=== PATIENT | male | born 1970 | race Caucasian/White ===

== ENCOUNTER 2018-05-11 07:23 | Day surgery (SDC) | payer OTHER, MEDICAID ==
[~2018-05-11] VITALS: Ht 172.7 cm; Wt 94.8 kg
[2018-05-11] MEDS ORDERED: HYALURONATE SODIUM 14 MG/ML 0.85ML SYRINGE IO ONE (08:59)
[2018-05-11] MEDS ORDERED: BALANCED SALT IRRIG SOLN COMB1 500ML OP ONE (09:00)
[2018-05-11 09:01] VITALS: BP 150/82
[2018-05-11 09:08] LABS: EOSINOPHILS % 4.8 % (0.0-5.0); HEMATOCRIT. 41.4 % (42.0-52.0); HEMOGLOBIN. 14.2 g/dL (14.0-18.0); LYMPHOCYTES % 48.8 % (20.0-50.0); MEAN CORPUSCULAR HEMOGLOBIN 29.7 pg (28.0-32.0); MEAN CORPUSCULAR VOLUME 86.7 fL (80.0-94.0); MEAN PLATELET VOLUME 7.9 fl (7.4-10.4); MONOCYTES % 11.5 % (2.0-8.0); NEUTROPHILS % 33.9 % (40.0-76.0); PLATELET 283 x1000/uL (130-400); RED BLOOD CELL COUNT 4.78 mill/uL (4.7-6.1); RED CELL DISTRIBUTION WIDTH 13.4 % (11.6-14.6)
[2018-05-11 09:15] LABS: CHLORIDE 107 mEq/L (98-107)
[2018-05-11 09:16] LABS: PARTIAL THROMBOPLASTIN TIME 23.4 sec (23.4-31.0); PROTHROMBIN TIME 10.1 sec (9.1-11.1)
[2018-05-11] MEDS ORDERED: FENTANYL CITRATE/PF 50MCG/ML 2ML VIAL ONE (10:04)
[2018-05-11] MEDS ORDERED: MIDAZOLAM HCL 2 MG/2 ML VIAL ONE (10:04)
[2018-05-11] MEDS ORDERED: LABETALOL 5MG/ML SYR 20 MG/4 ML SYRINGE IV PRN (10:15)
[2018-05-11] MEDS ORDERED: MEPERIDINE HCL/PF 25MG/ML CPJ IV PRN (10:15)
[2018-05-11] MEDS ORDERED: HYDROMORPHONE HCL/PF 2MG/ML CPJ IV PRN (10:15)
[2018-05-11] MEDS ORDERED: ONDANSETRON HCL 4MG/2ML INJ IV PRN (10:15)
[2018-05-11] MEDS ORDERED: PROPOFOL 200MG/20ML VIAL IV ONE (10:18)
[2018-05-11] MEDS ORDERED: CEFAZOLIN SODIUM 1000MG/VIAL ONE (10:35)
[2018-05-11] MEDS ORDERED: SODIUM CHLORIDE 0.9% 10ML VIAL ONE (10:35)
[2018-05-11] MEDS ORDERED: LIDOCAINE HCL/PF 2% 20 MG/ML 10ML VIAL ONE (13:11)
[2018-05-11] MEDS ORDERED: NEO/POLYMYX B SULF/DEXAMETH OPHTH OINT 3.5GM ONE (13:11)
[2018-05-11] MEDS ORDERED: TETRACAINE 0.5% OPHTH DROPS 4ML ONE (13:11)
[2018-05-11] MEDS ORDERED: BALANCED SALT IRRIG SOLN 15ML ONE (13:11)
[2018-05-11] MEDS ORDERED: PREDNISOLONE ACETATE 1% OPHTH DROPS 1ML ONE (13:11)
== END 2018-05-11 10:35 | disposition home or self-care (01) ==
LOC: ER 07:23 → OR 09:55
PROVIDERS: ATTEND Ophthalmology
DX: T85.22XA Displacement of intraocular lens, initial encounter (principal); Z98.41 Cataract extraction status, right eye
CPT/HCPCS: 36415; 66825; 80048; 85025; 85610; 85730; 93005; 99285; A4216; J0690; J2250; J3010; J3490; J2704

== ENCOUNTER 2018-11-27 11:38 | Day surgery (SDC) | payer MEDICAID, OTHER ==
[~2018-11-27] VITALS: Ht 170.2 cm; Wt 88.0 kg
[2018-11-27] MEDS ORDERED: PREDNISOLONE ACETATE 1% OPHTH DROPS 1ML ONE (13:20)
[2018-11-27] MEDS ORDERED: LIDOCAINE HCL 2%/EPINEPHRINE 1:100,000 20 ML VIAL INFIL ONE (13:20)
[2018-11-27] MEDS ORDERED: BUPIVACAINE HCL/PF 0.75% (7.5MG/ML) 10ML ONE (13:20)
[2018-11-27] MEDS ORDERED: BALANCED SALT IRRIG SOLN 15ML ONE (13:20)
[2018-11-27] MEDS ORDERED: NEO/POLYMYX B SULF/DEXAMETH OPHTH OINT 3.5GM ONE (13:20)
[2018-11-27] MEDS ORDERED: LIDOCAINE HCL/PF 2% 20 MG/ML 10ML VIAL ONE (13:20)
[2018-11-27] MEDS ORDERED: TETRACAINE 0.5% OPHTH DROPS 4ML ONE (13:20)
[2018-11-27] MEDS ORDERED: CIPROFLOXACIN 0.3% OPHTH SOLN 2.5ML ONE (13:20)
[2018-11-27 14:21] LABS: CHLORIDE 108 mEq/L (98-107)
[2018-11-27 14:27] LABS: BASOPHILS % 0.8 % (0.0-2.0); EOSINOPHILS % 2.1 % (0.0-5.0); HEMATOCRIT. 43.2 % (42.0-52.0); HEMOGLOBIN. 14.8 g/dL (14.0-18.0); LYMPHOCYTES % 46.8 % (20.0-50.0); MEAN CORPUSCULAR HEMOGLOBIN 30.1 pg (28.0-32.0); MEAN CORPUSCULAR VOLUME 88.1 fL (80.0-94.0); MEAN PLATELET VOLUME 7.7 fl (7.4-10.4); MONOCYTES % 10.6 % (2.0-8.0); NEUTROPHILS % 39.7 % (40.0-76.0); PLATELET 303 x1000/uL (130-400); RED BLOOD CELL COUNT 4.91 mill/uL (4.7-6.1); RED CELL DISTRIBUTION WIDTH 13.5 % (11.6-14.6)
[2018-11-27 14:33] LABS: PROTHROMBIN TIME 10.4 sec (9.6-11.0)
[2018-11-27] MEDS ORDERED: DIPHENHYDRAMINE 50MG/ML VIAL ONE (15:13)
[2018-11-27] MEDS ORDERED: FENTANYL CITRATE/PF 50MCG/ML 2ML VIAL ONE (15:13)
[2018-11-27] MEDS ORDERED: MIDAZOLAM HCL 2 MG/2 ML VIAL ONE (15:13)
[2018-11-27] MEDS ORDERED: DEXAMETHASONE 4MG/ML 1ML VIAL ONE (15:24)
[2018-11-27] MEDS ORDERED: CEFAZOLIN SODIUM 1000MG/VIAL ONE (15:24)
[2018-11-27] MEDS ORDERED: LIDOCAINE HCL/PF 1% 10 MG/ML 5ML VIAL ONE (15:24)
[2018-11-27] MEDS ORDERED: PROPOFOL 200MG/20ML VIAL IV ONE (15:24)
[2018-11-27] MEDS ORDERED: SODIUM CHLORIDE 0.9% 10ML VIAL ONE (15:24)
[2018-11-27] MEDS ORDERED: HYALURONATE SODIUM 14 MG/ML 0.85ML SYRINGE IO ONE (15:36)
[2018-11-27] MEDS ORDERED: HYDROMORPHONE HCL/PF 2MG/ML CPJ IV PRN (16:15)
[2018-11-27 16:35] VITALS: BP 118/72
== END 2018-11-27 18:15 | disposition home or self-care (01) ==
LOC: ER 11:38 → OR 15:22
PROVIDERS: ATTEND Ophthalmology
DX: H27.131 Posterior dislocation of lens, right eye (principal); H53.2 Diplopia
CPT/HCPCS: 36415; 66825; 80053; 85025; 85610; 93005; 96374; 99285; J0690; J1100; J1170; J1200; J2250; J2704; J3010; J3490